=== PATIENT | male | born 1985 | race Caucasian/White ===

== ENCOUNTER 2019-12-05 23:10 | Emergency (ER) | payer OTHER ==
[~2019-12-05] VITALS: Ht 190.5 cm; Wt 107.7 kg
[2019-12-05 23:15] VITALS: Ht 190.5 cm; Wt 107.7 kg
[2019-12-06 00:57] LABS: SOURCE FLUID SYNOVIAL FLUID
[2019-12-06 00:58] LABS: APPEARANCE FLUID CLOUDY; COLOR FLUID RED; RBC FLUID 5460 /cumm; WBC FLUID 27 /cumm
[2019-12-06 01:05] LABS: LYMPHOCYTE FLUID 41 %; MONOCYTE FLUID 47 %
[2019-12-06 02:04] VITALS: BP 126/76
== END 2019-12-06 02:04 | disposition home or self-care (01) ==
LOC: ED 23:10
PROVIDERS: Emergency Medicine
DX: M70.41 Prepatellar bursitis, right knee (principal); Y93.89 Activity, other specified
CPT/HCPCS: J2001